=== PATIENT | female | born 1950 | race Caucasian/White ===

== ENCOUNTER 2017-05-25 12:46 | Inpatient (IN) | payer MEDICARE, MEDICAID ==
[~2017-05-25] VITALS: Ht 160 cm; Wt 59.0 kg
--- NOTE | 2017-05-25 13:01 | NUR ---
HX PROVIDED BY PT, NOT GOOD HISTORIAN. NO MED LIST PROVIDED.
[2017-05-25] MEDS ORDERED: IV NORMAL SALINE 500 ML IV ONE (13:15)
[2017-05-25] MEDS ORDERED: methylPREDNISolone SOD SUCC 40 MG/ML VIAL IV ONE (13:15)
[2017-05-25] MEDS ORDERED: ALBUTEROL SULFATE 2.5 MG/3 ML NEBU NEB ONE (13:15)
[2017-05-25] MEDS ORDERED: IPRATROPIUM BROMIDE 0.5 MG/2.5 ML NEBU NEB ONE (13:15)
[2017-05-25 13:30] LABS: BASOPHILS % (AUTO) 0.4 % (0.0-2.0); EOSINOPHILS # (AUTO) 0.1 K/uL (0.0-0.7); EOSINOPHILS % (AUTO) 1.1 % (0.0-7.0); HEMATOCRIT 46.8 % (31.2-41.9); HEMOGLOBIN 16.3 g/dL (10.9-14.3); LYMPHOCYTES # (AUTO) 2.9 K/uL (20.0-40.0); LYMPHOCYTES % (AUTO) 26.7 % (20.5-51.5); MEAN CORPUSCULAR HEMOGLOBIN 32.1 uug (24.7-32.8); MEAN CORPUSCULAR HGB CONC 35 g/dL (32.3-35.6); MEAN CORPUSCULAR VOLUME 92.3 fL (75.5-95.3); MONOCYTES # (AUTO) 0.8 K/uL (2.0-10.0); MONOCYTES % (AUTO) 6.9 % (0.0-11.0); NEUTROPHILS # (AUTO) 7.1 K/uL (1.8-8.9); NEUTROPHILS % (AUTO) 64.9 % (38.5-71.5); PLATELET COUNT (AUTO) 292 K/uL (179-408); RED BLOOD CELL COUNT(AUTO) 5.07 MIL/uL (3.63-4.92)
[2017-05-25 13:43] LABS: CREATININE 0.8 mg/dL (0.6-1.3); POTASSIUM 3.9 mmol/L (3.5-5.1)
[2017-05-25] MEDS ORDERED: methylPREDNISolone SOD SUCC 40 MG/ML VIAL ONE (13:51)
[2017-05-25 13:54] LABS: BILIRUBIN,TOTAL 0.4 mg/dL (0.2-1.0); TOTAL PROTEIN, SERUM 7.7 g/dL (6.4-8.2)
[2017-05-25 14:00] LABS: ABG BASE EXCESS -1.7 mmol/L; ABG HCO3 22.2 mmol/L; ABG PCO2 35.2 mmHg (35.0-45.0); ABG PH 7.417 (7.350-7.450); ABG PO2 162.3 mmHg (75.0-100.0); ABG SITE RIGHT RADIAL; ABG TOTAL HEMOGLOBIN 15.4 G/dL (12.0-16.0); COHb 1.7 % (0.5-1.5); MetHb 0.3 % (0.0-1.5); O2Hb 97.4 % (94.0-97.0); VENT MODE Nasal Cannula
[2017-05-25] MEDS ORDERED: IPRATROPIUM BROMIDE 0.5 MG/2.5 ML NEBU ONE ×2 (14:14→14:17)
[2017-05-25] MEDS ORDERED: ALBUTEROL SULFATE 2.5 MG/3 ML NEBU ONE (14:14)
[2017-05-25] MEDS ORDERED: ALBUTEROL SULFATE 2.5 MG/ 0.5 ML NEBU ONE (14:17)
[2017-05-25] MEDS ORDERED: CHOL500050 PO (14:50)
[2017-05-25] MEDS ORDERED: HYDR-552 PO (14:50)
[2017-05-25] MEDS ORDERED: CALC-555 PO (14:50)
[2017-05-25] MEDS ORDERED: NA P133E RC (14:50)
[2017-05-25] MEDS ORDERED: ACET325C PO (14:50)
[2017-05-25] MEDS ORDERED: BISA10SU12 RC (14:50)
[2017-05-25] MEDS ORDERED: ACET325T53 PO (14:50)
[2017-05-25] MEDS ORDERED: FENT1PAT4 TP (14:50)
[2017-05-25] MEDS ORDERED: METO25TA6 PO (14:50)
[2017-05-25] MEDS ORDERED: MAGN400O6 PO (14:50)
[2017-05-25] MEDS ORDERED: MULT1TAB11 PO (14:50)
--- NOTE | 2017-05-25 15:15 | NUR ---
INCONTINANCE CARE PROVIDED. DENIES PAIN.
--- NOTE | 2017-05-25 17:00 | NUR ---
PT WAS RECEIVED FROM ER ON A GURNEY. PT IS ORIGINALLY RESIGNS AT [facility]. PT IS A/O X 4. PT IS ON O2 2LPM, NO DISTRESS NOTED. PT STATES SHE HAS CHRONIC PAIN IN HER BACK, CURRENTLY AT 4/10 IN HER BACK. VS ARE STABLE. BREATHING IS NONE LABORED. PT IS ABLE TO ANSWER QUESTION.
[2017-05-25 17:16] VITALS: BP 120/67
[2017-05-25] MEDS ORDERED: ACETAMINOPHEN 325 MG TABLET PO PRN (18:00)
[2017-05-25] MEDS ORDERED: BISACODYL 10 MG SUPP.RECT RC PRN (18:00)
[2017-05-25] MEDS ORDERED: Medication Not On Formulary EA (Cholecalciferol (Vitamin D3) (Vitamin D3 CAPSULE) 50,000 PO SCH (18:00)
[2017-05-25] MEDS ORDERED: HYDROCODONE/APAP 5-325MG TABLET PO PRN ×2 (18:00)
[2017-05-25] MEDS ORDERED: FENTANYL 25 MCG/HR PATCH EACH TD SCH (18:30)
--- NOTE | 2017-05-25 18:48 | NUR ---
ATTEMPTED TO CONTACT [facility] ([phone]) TO OBTAIN INFORMATION IN REGARDS OF VACCINATION STATUS AND DRISDOL ADMINISTRATION (LAST DOSE GIVEN). LEFT A MESSAGE ON AUTOMATED SERVICE. WILL ENDORSE IT TO THE INCOMING SHIFT.
[2017-05-25] MEDS: CALCIUM CARB/VITAMIN D 500MG-200UNITS TABLET PO SCH (18:59)
[2017-05-25 20:17] VITALS: BP 130/76
--- NOTE | 2017-05-25 21:00 | NUR ---
RN NOTES RECEIVED PATIENT LYING IN BED, AWAKE A/OX3, VERBALLY RESPONSIVE ABLE TO MAKE NEEDS KNOWN. HAS HX OF CHRONIC PAIN, BUT PT DOES NOT REPORT ANY TYPE OF DISCOMFORT AT THIS TIME. HAS AN IV ACCESS TO THE R FA SL, DRY AND INTACT WITH NO S/SX OF INFILTRATION OR PHLEBITIS NOTED. DUE MEDS GIVEN, SEE EMAR. VS ARE TAKEN AND RECORDED, STABLE, SEE [email or web address] CARE PROVIDED. FALL PRECAUTIONS MAINTAINED AND SAFETY MEASURES REINFORCED. CALL LIGHT WITHIN REACH. WILL CONTINUE TO MONITOR.
[2017-05-26 06:44] VITALS: BP 143/59
[2017-05-26] MEDS ORDERED: Medication Not On Formulary EA (Multivitamins W-Minerals (Multivitamin With Minerals) 1 PO SCH (09:00)
[2017-05-26] MEDS: MULTIVIT, IRON, MIN NO. 8, FA TABLET PO SCH (09:11)
[2017-05-26] MEDS: CALCIUM CARB/VITAMIN D 500MG-200UNITS TABLET PO SCH (09:11)
[2017-05-26] MEDS: METOPROLOL TARTRATE 25 MG TABLET PO SCH ×2 (09:12→20:55)
[2017-05-26] MEDS ORDERED: FENTANYL 25 MCG/HR PATCH EACH TD SCH ×2 (11:21→11:50)
[2017-05-26 11:32] VITALS: BP 109/44
[2017-05-26] MEDS ORDERED: ERGOCALCIFEROL 50,000 UNIT CAPSULE PO SCH (12:00)
[2017-05-26 15:24] VITALS: BP 105/69
--- NOTE | 2017-05-26 20:00 | NUR ---
RN NOTES RECEIVED PT IN BED AWAKE A/OX4. ABLE TO MAKE NEEDS KNOWN. VERBALLY RESPONSIVE. HAS AN AIR LOSS MATTRESS IN PLACE. OFFERED TO REPOSITION EVERY 2 HRS. VS ARE STABLE, TAKEN AND RECORDED. SL TO R FA IS INTACT AND PATENT. WILL CONTINUE TO MONITOR.
[2017-05-26 20:06] VITALS: BP 110/55
[2017-05-26] MEDS: Z GUARD REMEDY PASTE 57 GM TUBE TOP SCH ×2 (20:59→21:00)
[2017-05-27 06:02] VITALS: BP 120/55
--- NOTE | 2017-05-27 07:00 | NUR ---
RN NOTES ENDORSED PT TO [facility] RN IN STABLE CONDITION. VS ARE STABLE. NO S/SX OF DISTRESS NOTED.
[2017-05-27] MEDS: MULTIVIT, IRON, MIN NO. 8, FA TABLET PO SCH (08:52)
[2017-05-27] MEDS: CALCIUM CARB/VITAMIN D 500MG-200UNITS TABLET PO SCH (08:53)
[2017-05-27] MEDS: Z GUARD REMEDY PASTE 57 GM TUBE TOP SCH ×2 (08:53→20:21)
[2017-05-27] MEDS: METOPROLOL TARTRATE 25 MG TABLET PO SCH ×2 (08:53→20:19)
[2017-05-27 11:36] VITALS: BP 103/44
[2017-05-27 15:54] VITALS: BP 107/50
--- NOTE | 2017-05-27 18:20 | NUR ---
PT. RESTING IN BED AND REPOS. Q 2HRS WITH ALL NEEDS ATTENDED. GOOD APPETITE. PT. WATCH TV PART OF SHIFT AND SLEEPING INTERMITTENTLY. NO ACUTE DISTRESS. CALL LIGHT W/IN REACH.
[2017-05-27 20:00] VITALS: BP 117/70
--- NOTE | 2017-05-27 20:00 | NUR ---
RECEIVED SHIFT REPORT FROM PREVIOUS SHIFT NURSE. PATIENT IS A/OX2. IN STABLE CONDITION, NO S/S OF DISTRESS. ABLE TO COMMUNICATE WITH PATIENT. PATIENT DOES NOT COMPLAIN OF ANY PAIN AT THIS TIME. PATIENT'S BLOOD PRESSURE WNL. BED IN LOCKED/LOW POSITION WITH SIDE RAILS UP X2, CALL LIGHT WITHIN REACH. SAFETY AND COMFORT WILL BE PROVIDED THROUGHOUT SHIFT.
[2017-05-28 05:10] VITALS: BP 124/67
--- NOTE | 2017-05-28 06:08 | NUR ---
PATIENT SLEPT INTERMITTENTLY THROUGH THE NIGHT. IN STABLE CONDITION, NO S/S OF DISTRESS. REPOSITIONED THROUGH THE NIGHT. NO COMPLAINTS OF PAIN EXPRESSED BY PATIENT. PT RESTING IN BED COMFORTABLY, IN SAFE ENVIRONMENT/CONDITION. BED IN LOCKED/LOW POSITION WITH SIDE RAILS UP X2, CALL LIGHT WITHIN REACH OF PATIENT. SAFETY AND COMFORT PROVIDED THROUGHOUT SHIFT.
--- NOTE | 2017-05-28 07:15 | NUR ---
RECEIVED REPORT FROM ADMINISTRATIVE OFFICER NURSE, PATIENT IN BED AWAKE, NO EVIDENCE OF DISTRESS NOTED, BED IN LOW POSITION, SIDE RAILS UP X2.
[2017-05-28] MEDS: CALCIUM CARB/VITAMIN D 500MG-200UNITS TABLET PO SCH (09:09)
[2017-05-28] MEDS: MULTIVIT, IRON, MIN NO. 8, FA TABLET PO SCH (09:09)
[2017-05-28] MEDS: Z GUARD REMEDY PASTE 57 GM TUBE TOP SCH (09:10)
[2017-05-28] MEDS: METOPROLOL TARTRATE 25 MG TABLET PO SCH (09:18)
[2017-05-28 11:29] VITALS: BP 111/52
[2017-05-28 15:22] VITALS: BP 116/59
--- NOTE | 2017-05-28 18:51 | NUR ---
PATIENT HAS BEEN COOPERATIVE WITH CARE, NO EVIDENCE OF DISTRESS NOTED, BED IN LOW POSITION, SIDE RAILS UP X2.
== END 2017-05-28 19:53 | DRG 917 ==
LOC: ER 12:46 → TELE 16:34 → MED 17:20
PROVIDERS: ADMIT Internal Medicine; ATTEND Internal Medicine
DX: T59.811A Toxic effect of smoke, accidental (unintentional), initial encounter (principal); J96.01 Acute respiratory failure with hypoxia; G35 Multiple sclerosis; D75.1 Secondary polycythemia; E86.0 Dehydration; G44.209 Tension-type headache, unspecified, not intractable; I10 Essential (primary) hypertension; Y92.129 Unspecified place in nursing home as the place of occurrence of the external cause
CPT/HCPCS: 36415; 36600; 71010; 85025; 93005; A4663; J2920; J3590; J7040